=== PATIENT | male | born 1985 | race Caucasian/White ===

== ENCOUNTER 2024-12-29 05:54 | Day surgery (SDC) | payer BC ==
[~2024-12-29 05:54] MED LIST: CEFAZOLIN SODIUM ONE
[2024-12-29 06:09] VITALS: RESP 18
[2024-12-29] MEDS: Lactated Ringers 1,000 ML IV SCH (06:09)
[2024-12-29] MEDS ORDERED: Versed 2 MG/2 ML Injection ONE (07:50)
[2024-12-29] MEDS ORDERED: SUBLIMAZE 100 MCG/2 ML ONE (07:50)
[2024-12-29] MEDS ORDERED: Xylocaine-Mpf 2% 5 Ml Vial ONE (07:51)
[2024-12-29] MEDS ORDERED: TORAdol 30 mg Injection ONE (07:51)
[2024-12-29] MEDS ORDERED: propofoL IV ONE (07:51)
[2024-12-29] MEDS ORDERED: Zofran 4 MG/2 ML VIAL ONE (07:51)
[2024-12-29] MEDS ORDERED: DEXMEDETOMIDINE 80 MCG/20ML-NS IV ONE (07:51)
[2024-12-29 09:27] VITALS: BP 97/66; PULSE 51; TEMP 97; O2SAT 100
--- NOTE | 2025-01-01 07:47 | OP ---
DATE/TIME OF SURGERY: 12/29/2024 [id number] PREOPERATIVE DIAGNOSIS: Left carpal tunnel syndrome. POSTOPERATIVE DIAGNOSIS: Left carpal tunnel syndrome. PROCEDURE: Left carpal tunnel release. SURGEON: Jin August MD. MASSAGE THERAPIST: None. ANESTHESIA: General. COMPLICATIONS: None. ESTIMATED BLOOD LOSS: Minimal. INDICATIONS: The patient is a 39-year-old male who presented with left hand pain and numbness for approximately 1 year. He had nerve studies which revealed moderate carpal tunnel syndrome. We discussed options, and he wanted to proceed with left carpal tunnel release. I explained risks associated with the procedure, including but not limited to infection, pain, bleeding, damage to surrounding structures, stiffness, continued pain and numbness, and need for further procedures. After explaining all risks, benefits, and alternative treatment options, he desired to proceed with surgery. DESCRIPTION OF PROCEDURE AND FINDINGS: The patient was taken to the operating room and placed in the supine position. IV antibiotics were administered, and general anesthesia was administered as well. A tourniquet was applied to the left upper arm. The left upper extremity was then prepped and draped in standard sterile fashion. An Esmarch was used to exsanguinate the limb, and the tourniquet was inflated to 250 mmHg. A longitudinal incision was then made at the base of the palm, just ulnar to the finger wrist crease. Dissection was carried down to the transverse carpal ligament. The transverse carpal ligament was transected longitudinally, protecting the underlying structures. The distal volar forearm fascia was then released proximally using scissors. The tourniquet was then released, and the wound was thoroughly irrigated. The incision was then approximated with 4-0 nylon sutures in a simple interrupted fashion. The jose-incisional area was then injected with 0.25% Marcaine. A sterile dressing was then applied. The patient was then awakened from anesthesia and taken to the recovery room in stable condition.
== END 2024-12-29 09:37 | disposition home or self-care (01) ==
LOC: SDC 05:54
PROVIDERS: ATTEND Orthopaedic Surgery
DX: G56.02 Carpal tunnel syndrome, left upper limb (principal)